=== PATIENT | male | born 1955 | race Caucasian/White ===

== ENCOUNTER 2018-04-27 23:08 | Inpatient (IN) | payer OTHER, MEDICAID ==
[2018-04-27 23:58] LABS: ADD MAN DIFF? NO
[2018-04-28] LABS: WHITE BLOOD COUNT 5.2 10^3/ul (4.8-10.8)
[2018-04-28] LABS: BASOPHILS % 0.8 % (0.0-2.0); EOSINOPHILS # 0.6 10^3/ul (0.0-0.5); EOSINOPHILS % 11.5 % (0.0-7.0); HEMATOCRIT 30.1 % (42.0-52.0); HEMOGLOBIN 9.5 g/dl (14.0-18.0); LYMPHOCYTES # 1.4 10^3/ul (0.8-2.9); LYMPHOCYTES % 26.1 % (15.0-51.0); MEAN CORPUSCULAR HEMOGLOBIN 29.2 pg (29.0-33.0); MEAN CORPUSCULAR HGB CONC 31.6 g/dl (32.0-37.0); MEAN CORPUSCULAR VOLUME 92.6 fl (82.0-101.0); MEAN PLATELET VOLUME 10.4 fl (7.4-10.4); MONOCYTE # 0.6 10^3/ul (0.3-0.9); MONOCYTES % 11.9 % (0.0-11.0); NEUTROPHIL # 2.6 10^3/ul (1.6-7.5); NEUTROPHILS % 49.3 % (39.0-77.0); PLATELET COUNT 145 10^3/UL (140-415); RED BLOOD COUNT 3.25 10^6/ul (4.70-6.10); RED CELL DISTRIBUTION WIDTH 17.5 % (11.5-14.5)
[2018-04-28 00:15] LABS: INR 1.16; PROTIME 14.9 Sec (11.9-14.9); PT RATIO 1.2
[2018-04-28 00:16] LABS: PARTIAL THROMBOPLASTIN TIME 36.9 Sec (23.0-35.0)
[2018-04-28 00:18] LABS: ALANINE AMINOTRANSFERASE 40 IU/L (13-69); ALBUMIN 3.4 g/dl (3.3-4.9); ALBUMIN/GLOBULIN RATIO 0.89; ALKALINE PHOSPHATASE 175 IU/L (42-121); ANION GAP 9 (5-13); ASPARTATE AMINO TRANSFERASE 32 IU/L (15-46); BILIRUBIN,INDIRECT 1.3 mg/dl (0-1.1); BILIRUBIN,TOTAL 1.3 mg/dl (0.2-1.3); BLOOD UREA NITROGEN 36 mg/dl (7-20); CALCIUM 9.4 mg/dl (8.4-10.2); CARBON DIOXIDE 36 mmol/L (21-31); CHLORIDE 95 mmol/L (97-110); CREATININE 1.61 mg/dl (0.61-1.24); Estimated GFR 44 mL/min (>60); GLUCOSE 105 mg/dl (70-220); POTASSIUM 3.2 mmol/L (3.5-5.1); SODIUM 140 mmol/L (135-144); TOTAL PROTEIN 7.2 g/dl (6.1-8.1)
[2018-04-28 00:29] LABS: TROPONIN-I 0.017 ng/ml (0.000-0.120)
[2018-04-28] MEDS: ONDANSETRON 4 MG INJ IV (01:42)
[2018-04-28] MEDS: morphine 4 MG/ML VIAL IV (01:42)
[2018-04-28] MEDS ORDERED: BISACODYL (EC) 5 MG TAB PO (02:00)
[2018-04-28] MEDS ORDERED: DOCUSATE SODIUM 100 MG CAP PO (02:00)
[2018-04-28] MEDS ORDERED: NACL 0.9% 3 ML SYG IV (02:00)
[2018-04-28] MEDS: SOD CHLORIDE 0.9% 500 ML IV (02:08)
[2018-04-28 03:13] LABS: ERYTHROCYTE SEDIMENTATION RATE 47 mm/Hr (0-20)
[2018-04-28 03:40] LABS: ADD MAN DIFF? NO
[2018-04-28 03:57] LABS: HEMOGLOBIN A1C 5.7 % (0-5.9); WHITE BLOOD COUNT 5.6 10^3/ul (4.8-10.8)
[2018-04-28 03:57] LABS: BASOPHILS % 0.7 % (0.0-2.0); EOSINOPHILS # 0.7 10^3/ul (0.0-0.5); EOSINOPHILS % 11.5 % (0.0-7.0); HEMOGLOBIN 9.7 g/dl (14.0-18.0); LYMPHOCYTES # 1.3 10^3/ul (0.8-2.9); LYMPHOCYTES % 22.9 % (15.0-51.0); MEAN CORPUSCULAR HEMOGLOBIN 29.8 pg (29.0-33.0); MEAN CORPUSCULAR HGB CONC 32.3 g/dl (32.0-37.0); MEAN CORPUSCULAR VOLUME 92.3 fl (82.0-101.0); MEAN PLATELET VOLUME 10.5 fl (7.4-10.4); MONOCYTE # 0.5 10^3/ul (0.3-0.9); MONOCYTES % 9.6 % (0.0-11.0); NEUTROPHIL # 3.1 10^3/ul (1.6-7.5); NEUTROPHILS % 54.8 % (39.0-77.0); PLATELET COUNT 145 10^3/UL (140-415); RED BLOOD COUNT 3.25 10^6/ul (4.70-6.10); RED CELL DISTRIBUTION WIDTH 17.6 % (11.5-14.5)
[2018-04-28 03:59] LABS: LACTIC ACID 1.3 mmol/L (0.5-2.0)
[2018-04-28 04:00] LABS: IRON 54 ug/dl (35-150)
[2018-04-28 04:02] LABS: ALANINE AMINOTRANSFERASE 39 IU/L (13-69); ALKALINE PHOSPHATASE 179 IU/L (42-121); ANION GAP 10 (5-13); ASPARTATE AMINO TRANSFERASE 30 IU/L (15-46); BILIRUBIN,INDIRECT 1.4 mg/dl (0-1.1); BLOOD UREA NITROGEN 35 mg/dl (7-20); CALCIUM 9.3 mg/dl (8.4-10.2); CARBON DIOXIDE 33 mmol/L (21-31); CHLORIDE 98 mmol/L (97-110); CREATININE 1.55 mg/dl (0.61-1.24); Estimated GFR 46 mL/min (>60); GLUCOSE 104 mg/dl (70-220); MAGNESIUM 1.9 mg/dl (1.7-2.5); POTASSIUM 3.4 mmol/L (3.5-5.1); SODIUM 141 mmol/L (135-144)
[2018-04-28] MEDS: SOD CHLORIDE 0.9% 1,000 ML IV (04:02)
[2018-04-28 04:03] LABS: ALBUMIN 3.3 g/dl (3.3-4.9); ALBUMIN/GLOBULIN RATIO 0.89; BILIRUBIN,TOTAL 1.4 mg/dl (0.2-1.3); CHOL/HDL RATIO 3.6 RATIO; CHOLESTEROL 83 mg/dl (100-200); HDL CHOLESTEROL 23 mg/dl (30-78); LDL CHOLESTEROL,CALCULATED 48 mg/dl; TRIGLYCERIDES 61 mg/dl (0-149)
[2018-04-28 04:09] LABS: % IRON SATURATION 21 % SAT (22-52); TOTAL IRON BINDING CAPACITY 260 ug/dl (241-421)
[2018-04-28] MEDS: HEPARIN 5,000 UNIT/1 ML VIAL SC (07:08)
[2018-04-28] MEDS ORDERED: INSULIN ASPART [NOVOLOG] 3 ML PEN SC (08:00)
[2018-04-28] MEDS ORDERED: VANCOMYCIN IV PER PHARMACY XX (08:30)
[2018-04-28 09:46] LABS: B-TYPE NATRIURETIC PEPTIDE 4960 PG/ML (0-125)
[2018-04-28] MEDS: METOPROLOL (XL) 25 MG TAB PO ×2 (10:27→20:25)
[2018-04-28] MEDS: POTASSIUM CHLORIDE (SR) 20 MEQ TAB PO (10:28)
[2018-04-28] MEDS: ALBUMIN HUMAN 25% 100 ML IV ×2 (10:34→14:42)
[2018-04-28] MEDS: FUROSEMIDE 40 MG INJ IV ×2 (10:40→17:28)
[2018-04-28] MEDS: CLOTRIMAZOLE 1% 30 GM CR TOP ×2 (10:40→20:25)
[2018-04-28] MEDS: MAGNESIUM SULFATE 1 GM/D5W 100 ML IVPB (12:54)
[2018-04-28] MEDS ORDERED: ALBUMIN HUMAN 25% 100 ML (14:38)
[2018-04-28] MEDS: VANCOMYCIN HCL 2 GM in SOD CHLORIDE 0.9% 500 ML IVPB (15:47)
[2018-04-28] MEDS: SPIRONOLACTONE 25 MG TAB PO (17:29)
[2018-04-28] MEDS: DIGOXIN 500 MCG INJ IV (17:40)
[2018-04-28] MEDS ORDERED: FUROSEMIDE 40 MG INJ IV (18:00)
[2018-04-29] MEDS: ACCU-CHEK XX (01:39)
[2018-04-29 06:03] LABS: ADD MAN DIFF? NO
[2018-04-29] MEDS: FUROSEMIDE 40 MG INJ IV (06:11)
[2018-04-29 06:12] LABS: WHITE BLOOD COUNT 4.6 10^3/ul (4.8-10.8)
[2018-04-29 06:12] LABS: BASOPHILS % 0.7 % (0.0-2.0); EOSINOPHILS # 0.4 10^3/ul (0.0-0.5); EOSINOPHILS % 8.3 % (0.0-7.0); HEMATOCRIT 27.6 % (42.0-52.0); HEMOGLOBIN 8.9 g/dl (14.0-18.0); LYMPHOCYTES # 1.2 10^3/ul (0.8-2.9); LYMPHOCYTES % 25.5 % (15.0-51.0); MEAN CORPUSCULAR HEMOGLOBIN 29.7 pg (29.0-33.0); MEAN CORPUSCULAR HGB CONC 32.2 g/dl (32.0-37.0); MEAN PLATELET VOLUME 11.2 fl (7.4-10.4); MONOCYTE # 0.7 10^3/ul (0.3-0.9); MONOCYTES % 16.1 % (0.0-11.0); NEUTROPHIL # 2.3 10^3/ul (1.6-7.5); NEUTROPHILS % 49.2 % (39.0-77.0); PLATELET COUNT 124 10^3/UL (140-415); POSITIVE DIFF @See below; RED CELL DISTRIBUTION WIDTH 17.2 % (11.5-14.5)
[2018-04-29 06:22] LABS: HEMOGLOBIN A1C 5.8 % (0-5.9)
[2018-04-29 06:43] LABS: ALANINE AMINOTRANSFERASE 35 IU/L (13-69); ALBUMIN 3.3 g/dl (3.3-4.9); ALKALINE PHOSPHATASE 130 IU/L (42-121); ANION GAP 11 (5-13); ASPARTATE AMINO TRANSFERASE 27 IU/L (15-46); BILIRUBIN,INDIRECT 1.8 mg/dl (0-1.1); BILIRUBIN,TOTAL 1.8 mg/dl (0.2-1.3); BLOOD UREA NITROGEN 35 mg/dl (7-20); CALCIUM 9.2 mg/dl (8.4-10.2); CARBON DIOXIDE 32 mmol/L (21-31); CHLORIDE 97 mmol/L (97-110); CREATININE 1.64 mg/dl (0.61-1.24); Estimated GFR 43 mL/min (>60); GLUCOSE 95 mg/dl (70-220); POTASSIUM 4.2 mmol/L (3.5-5.1); SODIUM 140 mmol/L (135-144); TOTAL PROTEIN 6.6 g/dl (6.1-8.1)
[2018-04-29 06:50] LABS: FREE T4 (FREE THYROXINE) 1.79 ng/dl (0.78-2.44)
[2018-04-29 07:24] LABS: B-TYPE NATRIURETIC PEPTIDE 5340 PG/ML (0-125)
[2018-04-29] MEDS: CLOTRIMAZOLE 1% 30 GM CR TOP ×2 (08:07→21:06)
[2018-04-29] MEDS: METOPROLOL (XL) 25 MG TAB PO ×2 (08:07→21:04)
[2018-04-29] MEDS: SPIRONOLACTONE 25 MG TAB PO (08:07)
[2018-04-29] MEDS: DIGOXIN 500 MCG INJ IV (08:56)
[2018-04-29] MEDS: SUCRALFATE 1 GM TAB PO (18:17)
[2018-04-29] MEDS: APIXABAN 5 MG TABLET PO (21:04)
[2018-04-29] MEDS: PANTOPRAZOLE (EC) 40 MG TAB PO (21:04)
[2018-04-29] MEDS: FUROSEMIDE 40 MG TAB PO (21:05)
[2018-04-30] MEDS: SUCRALFATE 1 GM TAB PO ×4 (00:21→18:49)
[2018-04-30] MEDS: ACCU-CHEK XX (02:00)
[2018-04-30] MEDS: ACETAMINOPHEN 325 MG TAB PO ×3 (02:09→20:29)
[2018-04-30 06:08] LABS: ADD MAN DIFF? NO
[2018-04-30 06:16] LABS: BASOPHILS % 0.7 % (0.0-2.0); EOSINOPHILS # 0.8 10^3/ul (0.0-0.5); EOSINOPHILS % 13.4 % (0.0-7.0); HEMATOCRIT 27.2 % (42.0-52.0); HEMOGLOBIN 8.7 g/dl (14.0-18.0); LYMPHOCYTES # 1.4 10^3/ul (0.8-2.9); LYMPHOCYTES % 22.8 % (15.0-51.0); MEAN CORPUSCULAR HEMOGLOBIN 28.9 pg (29.0-33.0); MEAN CORPUSCULAR VOLUME 90.4 fl (82.0-101.0); MEAN PLATELET VOLUME 10.7 fl (7.4-10.4); MONOCYTE # 0.8 10^3/ul (0.3-0.9); MONOCYTES % 13.9 % (0.0-11.0); NEUTROPHILS % 48.9 % (39.0-77.0); PLATELET COUNT 117 10^3/UL (140-415); RED BLOOD COUNT 3.01 10^6/ul (4.70-6.10); RED CELL DISTRIBUTION WIDTH 16.8 % (11.5-14.5)
[2018-04-30 06:16] LABS: WHITE BLOOD COUNT 6.1 10^3/ul (4.8-10.8)
[2018-04-30 07:01] LABS: ALANINE AMINOTRANSFERASE 38 IU/L (13-69); ALBUMIN 3.3 g/dl (3.3-4.9); ALKALINE PHOSPHATASE 143 IU/L (42-121); ANION GAP 11 (5-13); ASPARTATE AMINO TRANSFERASE 26 IU/L (15-46); BILIRUBIN,INDIRECT 1.5 mg/dl (0-1.1); BILIRUBIN,TOTAL 1.5 mg/dl (0.2-1.3); BLOOD UREA NITROGEN 36 mg/dl (7-20); CALCIUM 9.2 mg/dl (8.4-10.2); CARBON DIOXIDE 31 mmol/L (21-31); CHLORIDE 97 mmol/L (97-110); Estimated GFR 44 mL/min (>60); GLUCOSE 93 mg/dl (70-220); POTASSIUM 3.7 mmol/L (3.5-5.1); SODIUM 139 mmol/L (135-144); TOTAL PROTEIN 6.6 g/dl (6.1-8.1)
[2018-04-30] MEDS: CLOTRIMAZOLE 1% 30 GM CR TOP ×2 (09:58→20:31)
[2018-04-30] MEDS: METOLAZONE 5 MG TAB PO (09:59)
[2018-04-30] MEDS: METOPROLOL (XL) 25 MG TAB PO ×2 (10:00→20:30)
[2018-04-30] MEDS: APIXABAN 5 MG TABLET PO ×2 (10:00→20:30)
[2018-04-30] MEDS: FUROSEMIDE 40 MG TAB PO ×2 (10:00→20:31)
[2018-04-30] MEDS: PANTOPRAZOLE (EC) 40 MG TAB PO ×2 (10:00→20:30)
[2018-04-30] MEDS: SPIRONOLACTONE 25 MG TAB PO (10:00)
[2018-04-30] MEDS: POLYETHYLENE GLYCOL 17 GM PACKET PO (11:14)
== END 2018-04-30 23:05 | DRG 699 ==
LOC: E/R 23:08 → 6WM 04-28 01:44
DX: S37.39XA Other injury of urethra, initial encounter (principal); T83.83XA Hemorrhage due to genitourinary prosthetic devices, implants and grafts, initial encounter; Z68.45 Body mass index [BMI] 70 or greater, adult; I13.0 Hypertensive heart and chronic kidney disease with heart failure and stage 1 through stage 4 chronic kidney disease, or unspecified chronic kidney disease; I50.42 Chronic combined systolic (congestive) and diastolic (congestive) heart failure; N17.9 Acute kidney failure, unspecified; D69.6 Thrombocytopenia, unspecified; I48.2 Chronic atrial fibrillation; E66.01 Morbid (severe) obesity due to excess calories; B35.3 Tinea pedis; Y84.6 Urinary catheterization as the cause of abnormal reaction of the patient, or of later complication, without mention of misadventure at the time of the procedure; R31.9 Hematuria, unspecified; Y73.2 Prosthetic and other implants, materials and accessory gastroenterology and urology devices associated with adverse incidents; D64.9 Anemia, unspecified; G47.33 Obstructive sleep apnea (adult) (pediatric); N18.9 Chronic kidney disease, unspecified; R33.8 Other retention of urine; R60.0 Localized edema; Y92.128 Other place in nursing home as the place of occurrence of the external cause; Y93.89 Activity, other specified; Y99.8 Other external cause status; Z79.01 Long term (current) use of anticoagulants
CPT/HCPCS: 71045; 76775; 80053; 80061; 82306; 82728; 82962; 83036; 83540; 83605; 83735; 83880; 84439; 84443; 84484; 85025; 85610; 85651; 85730; 86140; 87040; 87081; 90686; 93005; 93306; 93970; 97116; 97162; 97530